=== PATIENT | female | born 1950 ===

== ENCOUNTER 2017-02-09 08:24 | Observation (INO) | payer MEDICARE, MEDICAID ==
[2017-02-09 08:30] VITALS: BMI 25.8
--- NOTE | 2017-02-09 08:44 | ED PDOC ---
Arrival/HPI - General Chief Complaint: Chest Pain Time Seen by Provider: 02/09/17 08:30 Historian: Patient - History of Present Illness Narrative History of Present Illness (Text): 02/09/17 08:44 A 66 year old female, whose past medical history includes hypertension and arthritis, presents to the emergency department complaining of chest pain since this morning. Patient reports she has been experiencing this pain for sometime and worsened this morning. Patient describes it as a pressure sensation but denies any radiating pain. Patient notes nausea but denies any trauma, fever, vomiting, diarrhea, abdominal pain, shortness of breath or any other complaints. Patient reports she was seen by PMD 1 week ago for a cough. Patient was diagnosed with asthmatic bronchitis and started on a course of antibiotics. PMD: Dr. [facility] Coordinator: Dr. Menjivar Time/Duration: Other (This morning) Symptom Course: Unchanged Quality: Other Context: Other Past Medical History - Provider Review Nursing Documentation Reviewed: Yes - Tetanus Immunization Tetanus Immunization: Unknown - Cardiac Hx Cardiac Disorders: Yes (leaky valve) Hx Angina: Yes Hx Hypertension: Yes - Pulmonary Hx Asthma: Yes Hx Bronchitis: Yes Hx Chronic Obstructive Pulmonary Disease (COPD): Yes - Neurological Hx Neurological Disorder: No - HEENT Hx HEENT Disorder: No - Renal Hx Renal Disorder: No - Endocrine/Metabolic Hx Endocrine Disorders: No - Hematological/Oncological Hx Blood Disorders: No - Integumentary Hx Dermatological Disorder: No - Musculoskeletal/Rheumatological Hx Falls: No - Gastrointestinal Hx Gastrointestinal Disorders: (hemorrhoids removed) - Genitourinary/Gynecological Hx Genitourinary Disorders: No - Psychiatric Hx Depression: Yes Hx Substance Use: No - Surgical History Hx Cardiac Catheterization: Yes Hx Musculoskeletal Surgery: Yes (right knee fx 2 sx's) Hx Orthopedic Surgery: Yes Other/Comment: lumps behind neck/capri great toes - Anesthesia Hx Anesthesia: Yes Hx Anesthesia Reactions: No - Suicidal Assessment Feels Threatened In Home Enviroment: No Family/Social History - Physician Review Nursing Documentation Reviewed: Yes Family/Social History: No Known Family HX Smoking Status: Never Smoked Hx Alcohol Use: No Hx Substance Use: No Hx Substance Use Treatment: No Allergies/Home Meds Allergies/Adverse Reactions: Allergies acetaminophen [From Percocet] Allergy (Verified 02/09/17 08:31) ITCHING morphine Allergy (Verified 02/09/17 08:31) ITCHING oxycodone HCl [From Percocet] Allergy (Verified 02/09/17 08:31) ITCHING tramadol HCl [From Ultram] Allergy (Verified 02/09/17 08:31) ITCHING Home Medications: Home Meds Medication Instructions Recorded Confirmed Budesonide/Formoterol Fumarate 1 aer IH DAILY 02/09/17 02/09/17 [Symbicort] Meloxicam [Mobic] 7.5 mg PO DAILY 02/09/17 02/09/17 Promethazine [Phenergan Syrup] 6.25 mg PO DAILY 02/09/17 02/09/17 Umeclidinium [place] [Incruse 62.5 mcg IH DAILY 02/09/17 02/09/17 Ellipta] Review of Systems - Physician Review All systems were reviewed & negative as marked: Yes - Review of Systems Constitutional: absent: Fevers Respiratory: absent: SOB Cardiovascular: Chest Pain Gastrointestinal: Nausea. absent: Abdominal Pain, Diarrhea, Vomiting Physical Exam Vital Signs Reviewed: Yes Vital Signs Temp Pulse Resp BP Pulse Ox 02/09/17 12:52 68 17 142/85 97 02/09/17 10:24 63 20 142/87 96 02/09/17 08:50 162/98 H 02/09/17 08:45 149/97 H 02/09/17 08:24 97.4 F L 84 18 156/72 H Temperature: Afebrile Blood Pressure: Hypertensive Pulse: Regular Respiratory Rate: Normal Appearance: Positive for: Well-Appearing, Non-Toxic, Comfortable Pain Distress: None Mental Status: Positive for: Alert and Oriented X 3 - Systems Exam Head: Present: Atraumatic, Normocephalic Pupils: Present: PERRL Extroacular Muscles: Present: EOMI Conjunctiva: Present: Normal Mouth: Present: Moist Mucous Membranes Neck: Present: Normal Range of Motion Respiratory/Chest: Present: Clear to Auscultation, Good Air Exchange. No: Respiratory Distress, Accessory Muscle Use, Tender to Palpation Cardiovascular: Present: Regular Rate and Rhythm, Normal S1, S2. No: Murmurs Abdomen: Present: Normal Bowel Sounds. No: Tenderness, Distention, Peritoneal Signs Back: Present: Normal Inspection Upper Extremity: Present: Normal Inspection. No: Cyanosis, Edema Lower Extremity: Present: Normal Inspection. No: Edema Neurological: Present: GCS=15, CN II-XII Intact, Speech Normal Skin: Present: Warm, Dry, Normal Color. No: Rashes Psychiatric: Present: Alert, Oriented x 3, Normal Insight, Normal Concentration Medical Decision Making ED Course and Treatment: 02/09/17 08:44 Impression: A 66 year old female with chest pain. Patient notes nausea. Differential Diagnosis included but are not limited to: Chest pain rule out ACS Plan: -- CT angio -- Chest xray -- EKG -- Labs -- Aspirin and Nitroglycerin -- Reassess and disposition Progress Notes: EKG shows NSR at 84 BPM with LBBB, no changes from prior on 11/21/14. Interpreted by me. Report Date : 02/09/2017 09:28:05 Procedure: Chest xray Dictator : Alfredito Pandya MD IMPRESSION: No active disease. Report Date : 02/09/2017 10:17:28 PROCEDURE: CT Angiography Chest, Abdomen and Pelvis with and without intravenous contrast Dictator : Alfredito Pandya MD IMPRESSION: Negative study 02/09/17 12:[address] Mitchell, who accepts patient admission for chest pain. I have discussed the results and plan with the patient, who expresses understanding. Patient in agreement with plan. - Lab Interpretations Lab Results: 02/09/17 08:30 02/09/17 08:30 Lab Results 02/09/17 08:30: WBC 5.8, RBC 4.58, Hgb 14.5, Hct 41.1, MCV 89.7, MCH 31.7, MCHC 35.3, RDW 12.5, Plt Count 287, MPV 10.2, Gran % 50.5, Lymph % (Auto) 42.1 H, Dubois % (Auto) 5.8, Eos % (Auto) 1.4 L, Baso % (Auto) 0.2, Gran # 2.94, Lymph # 2.5, Dubois # 0.3, Eos # 0.1, Baso # 0.01, PT 11.1, INR 1.03, APTT 29.4, D-Dimer, Quantitative 0.42, Sodium 139, Potassium 3.8, Chloride 101, Carbon Dioxide 26, Anion Gap 16, BUN 15, Creatinine 0.7, Est GFR ( Amer) > 60, Est GFR (Non- Af Amer) > 60, Random Glucose 97, Calcium 9.4, Magnesium 2.1, Total Bilirubin 1.0, AST 33, ALT 20, Alkaline Phosphatase 101, Lactate Dehydrogenase 822 H, Total Creatine Kinase 309 H, CK-MB (CK-2) 1.36, CK-MB (CK-2) % Cancelled, Troponin I 0.02 D, Total Protein 8.1, Albumin 4.5, Globulin 3.6, Albumin/ Globulin Ratio 1.3 I have reviewed the lab results: Yes - RAD Interpretation Radiology Orders: 02/09/17 08:44 CHEST PORTABLE [RAD] Stat 02/09/17 09:20 ANGIOGRAPHY DISECTION PROTOCOL [CT] Stat - Medication Orders Current Medication Orders: Albuterol/Ipratropium (Duoneb 3 Mg/0.5 Mg (3 Ml) Ud) 3 ml IH Q2H PRN PRN Reason: Shortness of Breath Albuterol/Ipratropium (Duoneb 3 Mg/0.5 Mg (3 Ml) Ud) 3 ml IH [id number] [facility] Last Admin: 02/09/17 15:23 Dose: 3 ML Aspirin (Aspirin Chewable) 81 mg PO DAILY [facility] [place] Last Admin: 02/09/17 11:31 Dose: Ibuprofen (Motrin Tab) 400 mg PO Q6 PRN PRN Reason: Pain, moderate (4-7) Levalbuterol HCl (Xopenex) 1.25 mg IH [id number] PRN PRN Reason: Shortness of Breath Discontinued Medications Aspirin (Aspirin) 325 mg PO STAT STA Stop: 02/09/17 08:45 Last Admin: 02/09/17 08:54 Dose: 325 MG Iohexol (Omnipaque 350 150 Ml) Confirm Administered Dose 150 ml .ROUTE .STK-MED ONE Stop: 02/09/17 09:27 Ketorolac Tromethamine (Toradol) 15 mg IVP STAT STA Stop: 02/09/17 10:39 Last Admin: 02/09/17 10:58 Dose: 15 MG IVP Administration Document 02/09/17 10:58 JOL (Rec: 02/09/17 10:58 JOL [id number]) Charges for Administration # of IVP Administrations 1 Nitroglycerin (Nitrostat Sl Tab) 0.4 mg SL STAT STA Stop: 02/09/17 08:45 Last Admin: 02/09/17 08:57 Dose: 0.4 MG Symbicort 160-4.5 Mcg Inhaler (Home Med) 1 aer IH DAILY COLT Last Admin: 02/09/17 12:10 Dose: - Scribe Statement The provider has reviewed the documentation as recorded by the [employer] Provider Scribe Attestation: All medical record entries made by the Scribe were at my direction and personally dictated by me. I have reviewed the chart and agree that the record accurately reflects my personal performance of the history, physical exam, medical decision making, and the department course for this patient. I have also personally directed, reviewed, and agree with the discharge instructions and disposition. Disposition/Present on Arrival - Present on Arrival Any Indicators Present on Arrival: No History of DVT/PE: No History of Uncontrolled Diabetes: No Urinary Catheter: No History of Decub. Ulcer: No History Surgical Site Infection Following: None - Disposition Have Diagnosis and Disposition been Completed?: Yes Diagnosis: Chest pain Disposition: HOSPITALIZED Disposition Time: 12:45 Patient Plan: Observation Patient Problems: Current Active Problems Problem Status Diagnosed Chest pain Acute Condition: FAIR
[2017-02-09 08:47] LABS: ADD MANUAL DIFF? NO
[2017-02-09 08:51] LABS: BASO # 0.01 K/mm3 (0.0-2.0); BASO % 0.2 % (0.0-3.0); EOS # 0.1 (0.0-0.7); EOS % 1.4 % (1.5-5.0); GRAN # 2.94 (1.4-6.5); GRAN % 50.5 % (50.0-68.0); HEMATOCRIT 41.1 % (36.0-48.0); LYMPH # 2.5 (1.2-3.4); LYMPH % 42.1 % (22.0-35.0); MEAN CELL VOLUME 89.7 fL (80.0-105.0); MEAN CORPUSCULAR HEMOGLOBIN 31.7 pg (25.0-35.0); MEAN CORPUSCULAR HGB CONC 35.3 g/dl (31.0-37.0); MEAN PLATELET VOLUME 10.2 fl (7.0-11.0); MONO # 0.3 (0.1-0.6); MONO % 5.8 % (1.0-6.0); PLATELET COUNT 287 10^3/uL (120.0-450.0); RED CELL DISTRIBUTION WIDTH 12.5 % (11.5-14.5); WHITE BLOOD COUNT 5.8 10^3/ul (4.5-11.0)
[2017-02-09 09:08] LABS: ALB/GLOB RATIO 1.3 (1.1-1.8); ALKALINE PHOSPHATASE 101 U/L (38-133); ALT/SGPT 20 U/L (7-56); AST/SGOT 33 U/L (15-39); BLOOD UREA NITROGEN 15 mg/dL (7-21); CALCIUM 9.4 mg/dL (8.4-10.5); CARBON DIOXIDE 26 mmol/L (21-33); CHLORIDE 101 mmol/L (95-110); GFR AFRICAN-AMERICAN > 60; GLUCOSE,RANDOM 97 mg/dL (70-110); MAGNESIUM 2.1 mg/dL (1.7-2.2); POTASSIUM 3.8 mmol/L (3.6-5.0); SODIUM 139 mmol/L (132-148); TOTAL PROTEIN 8.1 g/dL (5.8-8.3)
--- NOTE | 2017-02-09 09:29 | RAD ---
HISTORY: chest pain COMPARISON: 01/09/2017 FINDINGS: LUNGS: No active pulmonary disease. PLEURA: No significant pleural effusion identified, no pneumothorax apparent. CARDIOVASCULAR: Normal. OSSEOUS STRUCTURES: No significant abnormalities. VISUALIZED UPPER ABDOMEN: Normal. OTHER FINDINGS: None. IMPRESSION: No active disease.
[2017-02-09 09:33] LABS: TROPONIN I 0.02 ng/mL
--- NOTE | 2017-02-09 10:19 | CT ---
PROCEDURE: CT Angiography Chest, Abdomen and Pelvis with and without intravenous contrast HISTORY: chest pain r/o dissection COMPARISON: None. TECHNIQUE: Contiguous axial images of the chest, abdomen and pelvis were obtained in the phase of aortic enhancement. A noncontrast enhanced CT of the chest was also obtained to evaluate for possible intramural thrombus. Coronal and sagittal reformats were generated. IV dose administered: 150 cc of Omni 350 Radiation dose: Total exam DLP = 1498 mGy-cm. FINDINGS: CT ANGIOGRAPHY OF THE CHEST WITH & WITHOUT CONTRAST: AORTA (CHEST AND ABDOMEN): The thoracic and abdominal aorta are unremarkable, without aneurysm, dissection or rupture. No intramural thrombus identified in the thoracic aorta on the non-contrast ct of the chest. The celiac axis, superior mesenteric artery, inferior mesenteric artery and the renal arteries are widely patent. The pelvic arteries are unremarkable. LUNGS: Clear. No nodule, mass or consolidation. Calcified granuloma at the left lung base MEDIASTINUM: Unremarkable. Normal caliber aorta and pulmonary arterial trunk. No aortic dissection. Normal size heart. LYMPH NODES: Unremarkable. PLEURA: Unremarkable. No pneumothorax. No pleural fluid. BONES: Unremarkable. OTHER FINDINGS: None. CT ANGIOGRAPHY OF THE ABDOMEN AND PELVIS WITH CONTRAST: LIVER: Unremarkable. No gross lesion or ductal dilatation. GALLBLADDER AND BILE DUCTS: Unremarkable. PANCREAS: Unremarkable. No gross lesion or ductal dilatation. SPLEEN: Unremarkable. ADRENALS: Unremarkable. No mass. KIDNEYS AND URETERS: Unremarkable. No hydronephrosis. No solid mass. VASCULATURE: Unremarkable. No aortic aneurysm. STOMACH AND BOWEL: Unremarkable. No obstruction. No gross mural thickening. APPENDIX: Normal appendix. PERITONEUM: Unremarkable. No free fluid. No free air. LYMPH NODES: Unremarkable. No enlarged lymph nodes. BLADDER: Unremarkable. REPRODUCTIVE: Unremarkable. BONES: No acute fracture. OTHER FINDINGS: None. IMPRESSION: Negative study
[2017-02-09 10:23] LABS: INR 1.03 (0.93-1.08); PARTIAL THROMBOPLASTIN TIME 29.4 Seconds (23.7-30.8)
[2017-02-09 10:24] LABS: D DIMER 0.42 mg/L FEU (0-0.50)
[2017-02-09] MEDS ORDERED: Symbicort 160-4.5 Mcg Inhaler (HOME MED) IH SCH (11:15)
[2017-02-09] MEDS ORDERED: Albuterol-Ipratrop 3 mg / 0.5 (3 ml) UD IH PRN (11:16)
--- NOTE | 2017-02-09 11:44 | CARD ---
APPROVED REPORT EKG Measurement Heart [id number] <Conclusion> Normal sinus rhythm Left axis deviation Left bundle branch block Abnormal ECG
[2017-02-09] MEDS ORDERED: Levalbuterol 1.25 MG/3 ML Inhal Soln UD IH PRN (12:39)
--- NOTE | 2017-02-09 14:42 | HP ---
The patient is a 66-year-old, seen and examined, came to Emergency Room because of chest discomfort, shortness of breath. She did have chest discomfort that started since morning. The patient does sta te that she has been having intermittent chest pain that got worse today. Pain is pressure-like, lolly e heaviness in the chest. No radiation to the neck or the jaw or to the left arm. Denies any fever or chills. Does complain of nausea. No vomiting, no diarrhea, no abdominal pain. The patient state s she has cold-like symptoms almost a week and a half ago. She saw her PMD and has been on medicatio n, and her cough seems to be doing better. PAST MEDICAL HISTORY: Significant for: 1. Angina. 2. Hypertension. 3. Generalized osteoarthritis. 4. History of COPD. ALLERGIES: THE PATIENT IS ALLERGIC TO ACETAMINOPHEN, MORPHINE, OXYCODONE AND TRAMADOL. MEDICATIONS AT HOME: She is on Symbicort, promethazine, Mobic and Ellipta. SOCIAL HISTORY: Denies smoking, drinking or alcohol use. REVIEW OF SYSTEMS: Complained of chest discomfort and mild nausea. PHYSICAL EXAMINATION: GENERAL: She is awake and alert, communicative. VITAL SIGNS: She is afebrile, pulse 63, respirations 20, blood pressure 145/87. LUNGS: Bilateral fair airflow, no rhonchi or crackle. HEART: S1, S2 audible. No murmur. ABDOMEN: Soft, nontender, no rebound, no guarding. NEUROLOGIC: The patient is awake and alert, communicative. LABORATORY EXAMINATION: WBCs 5.8, hemoglobin 14.5, hematocrit 41, platelet of 283. PT 11.1, INR 1.0 3. Chemistry: Sodium 139, potassium 3.8, chloride 101, CO2 26, BUN 15, creatinine 0.7, blood sugar of 97. LDH is 822. CPK is 309. ASSESSMENT: 1. Chest pain, rule out underlying coronary artery disease. 2. Recent asthmatic bronchitis. 3. Hypertension. PLAN: We will put her on monitor and storage bin tender. Monitor her cardiac enzyme. Start her on aspirin, beta b locker and check her statin. Dr. Rankin to evaluate the patient. Davin Mitchell MD cc: [phone] TT: 02/09/2017 14:41:27 en
[2017-02-09] MEDS: Albuterol-Ipratrop 3 mg / 0.5 (3 ml) UD IH SCH ×2 (15:23→20:06)
[2017-02-09 15:56] LABS: CHOLESTEROL 162 mg/dL (130-200)
[2017-02-09 16:08] LABS: TROPONIN I < 0.01 ng/mL
[2017-02-09] MEDS ORDERED: guaiFENesin DM 100 mg-10 mg/5 ml UD PO PRN (19:11)
[2017-02-10] MEDS: Albuterol-Ipratrop 3 mg / 0.5 (3 ml) UD IH SCH ×2 (01:31→07:16)
--- NOTE | 2017-02-10 02:07 | CON ---
DATE: 02/09/2017 HISTORY OF PRESENT ILLNESS: The patient is a 66-year-old woman who presents with chest pain. PAST MEDICAL HISTORY: Notable for hypertension. She has suffered on and off chest pain over the past several years. Her workup has included a cardia c catheterization which was done 2 years ago, which revealed normal coronary arteries. Negative diabetes mellitus noted. Her symptoms are currently relieved. SOCIAL HISTORY: She does not smoke. REVIEW OF SYSTEMS: A 14-point review of systems was reviewed. No cardiac symptomatology is noted ot her than the vague description of chest pain. PHYSICAL EXAMINATION: VITAL SIGNS: Blood pressure and heart rate are stable. NECK: Negative JVD. LUNGS: Without rales. HEART: Reveals S1, S2. EXTREMITIES: Without edema. EKG shows normal sinus rhythm with a left anterior hemiblock with no acute changes. LABORATORIES: Troponins are negative x 1. IMPRESSION: 1. Chest pain. 2. No evidence for acute coronary syndrome so far. 3. History of normal coronary arteries. 4. Hypertension. 5. No evidence for PE on nuclear angiogram. Given these findings, we will obtain serial troponins. If negative, we will arrange for an outpatien t stress test. Larry Rankin MD cc: [id number] TT: 02/10/2017 02:06:49 Confirmation # [id number] Dictation # [id number] mn
[2017-02-10 05:26] VITALS: TEMP 97.5; O2SAT 96
[2017-02-10] MEDS ORDERED: Pantoprazole 40 mg EC Tab PO SCH (06:30)
[2017-02-10 07:22] LABS: ALB/GLOB RATIO 1.2 (1.1-1.8); ALKALINE PHOSPHATASE 81 U/L (38-133); ALT/SGPT 20 U/L (7-56); AST/SGOT 29 U/L (15-39); BILIRUBIN,TOTAL 1.2 mg/dL (0.2-1.3); BLOOD UREA NITROGEN 12 mg/dL (7-21); CALCIUM 9.3 mg/dL (8.4-10.5); CARBON DIOXIDE 30 mmol/L (21-33); CHLORIDE 100 mmol/L (98-107); GFR AFRICAN-AMERICAN > 60; GLUCOSE,RANDOM 92 mg/dL (70-110); MAGNESIUM 2.2 mg/dL (1.7-2.2); PHOSPHOROUS 4.7 mg/dL (2.5-4.5); POTASSIUM 4.2 mmol/L (3.6-5.0); SODIUM 138 mmol/L (132-148); TOTAL PROTEIN 7.5 g/dL (5.8-8.3)
[2017-02-10 07:29] LABS: FREE T4 1.14 ng/dL (0.78-2.19)
[2017-02-10 07:43] LABS: THYROID STIMULATING HORMONE 0.81 mIU/mL (0.46-4.68)
--- NOTE | 2017-02-10 11:40 | PN ---
DATE: 02/10/2017 SUBJECTIVE: The patient is chest pain free. She is ambulating in the room. PHYSICAL EXAMINATION: VITAL SIGNS: Blood pressure is 149/82. The heart rate is in the 80s. The patient is afebrile. NECK: Negative JVD. LUNGS: Without rales. HEART: Reveals S1, S2. EXTREMITIES: Without edema. LABORATORY DATA: The troponins are negative x 2. EKG is unchanged. IMPRESSION: 1. Chest pain. 2. No evidence for acute coronary syndrome. 3. History of hypertension. 4. No evidence for pulmonary embolism. Given these findings, from a cardiac perspective, the patient can be discharged. The patient has an appointment for an outpatient stress test next week. Larry Rankin MD cc: [id number] TT: 02/10/2017 11:40:10 Confirmation # [id number] Dictation # [id number] elva
[2017-02-10 12:16] VITALS: BP 150/88; PULSE 68; RESP 18
--- NOTE | 2017-02-11 08:04 | DS ---
The patient is a 66-year-old, seen and examined sitting in chair. She states chest pain is almost go ne. No nausea, vomiting or diarrhea. PHYSICAL EXAMINATION: VITAL SIGNS: She is afebrile, pulse 60, respirations 18, blood pressure 150/____. LUNGS: Bilateral fair airflow, no rhonchi or crackle. HEART: S1, S2 audible. ABDOMEN: Soft, nontender, no rebound, no guarding. NEUROLOGIC: The patient is awake and alert, communicative. LABORATORY EXAM: Sodium 138, potassium 4.2, chloride 100, CO2 of 30, BUN 12, creatinine 0.8, blood s ugar of 92, phosphorus 4.7, calcium 9.3. She had CT angio done that was unremarkable. ASSESSMENT AND PLAN: 1. Noncardiac chest pain. 2. Asthmatic bronchitis. 3. History of chronic obstructive pulmonary disease. PLAN: There is no evidence of acute coronary ischemia. The patient was evaluated by Dr. Rankin. She is scheduled for stress test as outpatient. She is going to be discharged today in stable condition. She can resume her medication including budesonide, Symbicort, promethazine, Mobic and Incruse. e will follow up with her PMD as outpatient. Davin Mitchell MD cc: [phone] TT: 02/11/2017 08:04:03 elva
== END 2017-02-10 13:06 | disposition home or self-care (01) ==
LOC: ED 08:24 → ERH 11:33 → 2RNO 13:26
PROVIDERS: ADMIT Internal Medicine; ATTEND Internal Medicine
DX: R07.89 Other chest pain (principal); I10 Essential (primary) hypertension; J44.9 Chronic obstructive pulmonary disease, unspecified; J45.909 Unspecified asthma, uncomplicated; M15.9 Polyosteoarthritis, unspecified
CPT/HCPCS: 36415; 71010; 71275; 74175; 80053; 80061; 82550; 82553; 82948; 83036; 83615; 83735; 84100; 84439; 84443; 84484; 85025; 85378; 85610; 85730; 93005; 94640; 94760; 96374; 99285; G0378; J1885; J2405; Q9967

== ENCOUNTER 2017-03-23 10:56 | Inpatient (IN) | payer MEDICARE, MEDICAID ==
[2017-03-23 10:56] VITALS: BMI 25.8
--- NOTE | 2017-03-23 11:07 | CP.PCM.PN ---
<Bernice Foreman - Last Filed: 03/23/17 11:24> Subjective - Date & Time of Evaluation Date of Evaluation: 03/23/17 Time of Evaluation: 11:05 - Subjective Subjective: Rapid Response note 66 year old female with past medical history of HTN, arthritis, COPD, gastritis and depression is complaining of chest pain after 1st part of pharmacological stress test (she was waiting for the second half of stress test). Patient was in waiting area after the 1st part of stress test when she developed substernal chest pain, non-radiating 05/25. Rapid response was then called. Patient denied having any SOB. She then developed nausea and a headache. Vitals are as follows: BORGES 96, Spo2 100% NC, BP 100/85 EKG showed LBBB Pmhx: stated above Objective - Vital Signs/Intake and Output Vital Signs (last 24 hours): Temp Pulse Resp BP Pulse Ox 98.2 F 95 H 18 171/102 H 97 03/23/17 11:02 03/23/17 11:02 03/23/17 11:02 03/23/17 11:02 03/23/17 11:02 - Constitutional Appears: In Acute Distress - ENT Exam ENT Exam: Mucous Membranes Moist - Respiratory Exam Respiratory Exam: Clear to Ausculation Bilateral. absent: Rales, Rhonchi, Wheezes - Cardiovascular Exam Cardiovascular Exam: Tachycardia - GI/Abdominal Exam GI & Abdominal Exam: Soft. absent: Tenderness - Extremities Exam Extremities Exam: absent: Pedal Edema - Neurological Exam Neurological Exam: Alert, Awake, Oriented x3 - Skin Skin Exam: Dry, Intact, Normal Color, Warm Assessment and Plan - Assessment and Plan (Free Text) Assessment: 1. Chest pain likely 2/2 ACS - Patient given aspirin and nitro SL - Transferred patient to ED with help of cardiac cath nurse, ICU nurse and house doctor. ED doctor notified. - EKG done during rapid response showed LBBB. previous EKGs were examined and also showed LBBB <Saji Davila - Last Filed: 03/27/17 22:32> Objective - Vital Signs/Intake and Output Vital Signs (last 24 hours): Temp Pulse Resp BP Pulse Ox 98.5 F 80 18 128/74 99 03/24/17 20:45 03/25/17 10:00 03/24/17 20:45 03/24/17 20:45 03/24/17 05:38 - Labs Labs: 03/24/17 06:00 PT 10.9 Seconds (9.9-11.8) 03/23/17 11:21 INR 1.01 (0.93-1.08) 03/23/17 11:21 APTT 28.8 Seconds (23.7-30.8) 03/23/17 11:21
[2017-03-23 11:29] LABS: ADD MANUAL DIFF? NO
[2017-03-23 11:32] LABS: BASO # 0.01 [, K/mm3] (0.0-2.0); BASO % 0.1 % (0.0-3.0); EOS % 0.4 % (1.5-5.0); GRAN # 3.88 (1.4-6.5); LYMPH # 2.5 (1.2-3.4); LYMPH % 36.9 % (22.0-35.0); MEAN CELL VOLUME 91.3 fL (80.0-105.0); MEAN CORPUSCULAR HEMOGLOBIN 30.9 pg (25.0-35.0); MEAN CORPUSCULAR HGB CONC 33.8 g/dl (31.0-37.0); MEAN PLATELET VOLUME 10.7 fl (7.0-11.0); MONO # 0.4 (0.1-0.6); MONO % 5.6 % (1.0-6.0); PLATELET COUNT 251 [, 10^3/uL] (120.0-450.0); RED CELL DISTRIBUTION WIDTH 12.5 % (11.5-14.5); WHITE BLOOD COUNT 6.8 [, 10^3/ul] (4.5-11.0)
--- NOTE | 2017-03-23 11:32 | ED PDOC ---
Arrival/HPI - General Chief Complaint: Chest Pain Time Seen by Provider: 03/23/17 10:58 Historian: Patient - History of Present Illness Narrative History of Present Illness (Text): 03/23/17 11:16 A 66 year old female, whose past medical history includes hypertension, presents to the emergency department with complaints of chest discomfort. Patient reports she was in the hospital undergoing a chemical stress test when she developed chest pain. There are no relieving or exacerbating factors. Patient denies any shortness of breath or other complaints at this time. Patient has a left bundle branch block on her EKG which is not new. PMD: Dr. Romano Time/Duration: Prior to Arrival Symptom Onset: Sudden Symptom Course: Unchanged Quality: Other (discomfort) Activities at Onset: Rest Context: Other Past Medical History - Provider Review Nursing Documentation Reviewed: Yes - Tetanus Immunization Tetanus Immunization: Unknown - Cardiac Hx Cardiac Disorders: Yes Hx Angina: Yes Hx Hypertension: Yes - Pulmonary Hx Respiratory Disorders: Yes Hx Asthma: Yes Hx Bronchitis: Yes Hx Chronic Obstructive Pulmonary Disease (COPD): Yes - Neurological Hx Neurological Disorder: No - HEENT Hx HEENT Disorder: No - Renal Hx Renal Disorder: No - Endocrine/Metabolic Hx Endocrine Disorders: No - Hematological/Oncological Hx Blood Disorders: No - Integumentary Hx Dermatological Disorder: No - Musculoskeletal/Rheumatological Hx Musculoskeletal Disorders: No Hx Falls: No - Gastrointestinal Hx Gastrointestinal Disorders: Yes (hemorrhoids removed) - Genitourinary/Gynecological Hx Genitourinary Disorders: No - Psychiatric Hx Psychophysiologic Disorder: Yes Hx Depression: Yes Hx Substance Use: No - Surgical History Hx Cardiac Catheterization: Yes Hx Musculoskeletal Surgery: Yes (right knee fx 2 sx's) Hx Orthopedic Surgery: Yes Other/Comment: lumps behind neck/capri great toes - Anesthesia Hx Anesthesia: Yes Hx Anesthesia Reactions: No - Suicidal Assessment Feels Threatened In Home Enviroment: No Family/Social History - Physician Review Nursing Documentation Reviewed: Yes Family/Social History: Unknown Family HX Smoking Status: Never Smoked Hx Alcohol Use: No Hx Substance Use: No Hx Substance Use Treatment: No Allergies/Home Meds Allergies/Adverse Reactions: Allergies acetaminophen [From Percocet] Allergy (Verified 03/23/17 10:59) ITCHING morphine Allergy (Verified 03/23/17 10:59) ITCHING oxycodone HCl [From Percocet] Allergy (Verified 03/23/17 10:59) ITCHING tramadol HCl [From Ultra] Allergy (Verified 03/23/17 10:59) ITCHING Home Medications: Home Meds Medication Instructions Recorded Confirmed Meloxicam [Mobic] 7.5 mg PO DAILY 02/09/17 03/23/17 Bisacodyl [Dulcolax] 1 tab PO PRN PRN 03/23/17 03/23/17 Escitalopram [Lexapro] 10 mg PO DAILY 03/23/17 03/23/17 Famotidine [Pepcid] 40 mg PO HS 03/23/17 03/23/17 Fluticasone Furoate [Arnuity 1 inh INH DAILY 03/23/17 03/23/17 Ellipta] Fluticasone Nasal [Flonase] 1 spray IN DAILY 03/23/17 03/23/17 Levocetirizine Dihydrochloride 5 mg PO HS 03/23/17 03/23/17 [Xyzal] Ondansetron HCl [Zofran] 8 mg PO Q6 PRN 03/23/17 03/23/17 Sucralfate [Carafate] 1 tab PO ACHS 03/23/17 03/23/17 Umeclidinium Brm/Vilanterol Tr 1 inh INH DAILY 03/23/17 03/23/17 [Anoro Ellipta 62.5-25 Mcg INH] Physical Exam - Physical Exam Narrative Physical Exam (Text): - Review of Systems Constitutional: Normal. absent: Fatigue, Weight Change, Fevers Eyes: Normal ENT: Normal Respiratory: Normal absent: SOB, Cough, Sputum Cardiovascular: Chest Pain. absent: Palpitations, Syncope Gastrointestinal: Normal absent: Abdominal pain, Diarrhea, Nausea, Vomiting Genitourinary: Normal. absent: Dysuria, Frequency, Hematuria Musculoskeletal: Normal. absent: Arthralgias, Back Pain, Neck Pain Skin: Normal Neurological: Normal absent: Focal Weakness Endocrine: Normal Hemo/Lymphatic: Normal Psychiatric: Normal - Physical exam Patient appears age appropriate, speaking full sentences without difficulty - Systems Exam Head: Present: Atraumatic, Normocephalic Pupils: Present: PERRL Extraocular Muscles: Present: EOMI Conjunctiva: Present: Normal Mouth: Present: Moist Mucous Membranes Neck: Present: Normal Range of Motion. No: MIDLINE TENDERNESS, Paraspinal Tenderness Respiratory/Chest: Present: Clear to Auscultation, Good Air Exchange. No: Respiratory Distress, Accessory Muscle Use, Tachypneic Cardiovascular: Present: Regular Rate and Rhythm, Normal S1, S2, Peripheral Pulses Present. No: Murmurs Abdomen: Present: Normal Bowel Sounds, No: Tenderness, Peritoneal Signs, Rebound, Guarding, Distention Back: Present: Normal Inspection. No: Midline Tenderness, Paraspinal Tenderness Upper Extremity: Present: Normal Inspection. No: Cyanosis, Edema Lower Extremity: Present: Normal Inspection. No: Edema Neurological: Present: GCS=15, Speech Normal, cranial nerves II through XII fully intact with no cerebellar abnormality, neuro-sensory fully intact. No focal neurological deficits. Skin: Present: Warm, Dry, Normal Color. No: Rashes Lymphatic: Present: OX3, NI, NC Psychiatric: Present: Alert, Oriented x 3, Normal Insight, Normal Concentration 03/23/17 11:54 Vital Signs Reviewed: Yes Vital Signs Temp Pulse Resp BP Pulse Ox 03/23/17 12:18 68 18 163/93 H 99 03/23/17 11:02 98.2 F 95 H 18 171/102 H 97 Temperature: Afebrile Blood Pressure: Hypertensive Pulse: Regular Respiratory Rate: Normal Appearance: Positive for: Well-Appearing, Non-Toxic, Comfortable Pain Distress: None Mental Status: Positive for: Alert and Oriented X 3 Medical Decision Making ED Course and Treatment: 03/23/17 11:16 Impression: A 66 year old female with chest discomfort during stress test. No acute findings on physical exam. Differential Diagnosis include but are not limited to: ACS Plan: -- EKG -- Chest X-ray -- Labs -- Aspirin and Nitroglycerin -- Reassess and disposition Progress Notes: EKG: Interpreted by me. Rate : 80 BPM Rhythm : NSR Interpretation : Left bundle branch Comparison : No change from previous EKG for comparison. 03/23/17 12:25 Chest X-ray: Creator : Alfredito Pandya MD IMPRESSION: No active disease. 03/23/17 13:[address] Mitchell in the ER accepted to her service pt in no distress, aware of and agrees with plan - Lab Interpretations Lab Results: 03/23/17 11:21 03/23/17 11:21 Lab Results 03/23/17 11:21: Sodium 141, Potassium 3.7, Chloride 98, Carbon Dioxide 30, Anion Gap 17, BUN 12, Creatinine 0.7, Est GFR ( Amer) > 60, Est GFR (Non- Af Amer) > 60, Random Glucose 100, Calcium 10.5, Total Bilirubin 1.1, AST 32, ALT 28, Alkaline Phosphatase 89, Lactate Dehydrogenase 790 H, Total Creatine Kinase 365 H, CK-MB (CK-2) 1.1, CK-MB (CK-2) % Cancelled, Troponin I < 0.01, NT- Pro-B Natriuret Pep 946 H, Total Protein 8.9 H, Albumin 5.0 H, Globulin 3.9, Albumin/Globulin Ratio 1.3 03/23/17 11:21: PT 10.9, INR 1.01, APTT 28.8 03/23/17 11:21: WBC 6.8, RBC 4.60, Hgb 14.2, Hct 42.0, MCV 91.3, MCH 30.9, MCHC 33.8, RDW 12.5, Plt Count 251, MPV 10.7, Gran % 57.0, Lymph % (Auto) 36.9 H, Newton % (Auto) 5.6, Eos % (Auto) 0.4 L, Baso % (Auto) 0.1, Gran # 3.88, Lymph # 2.5, Newton # 0.4, Eos # 0.0, Baso # 0.01 I have reviewed the lab results: Yes - RAD Interpretation Radiology Orders: 03/23/17 11:21 CHEST PORTABLE [RAD] Stat - Medication Orders Current Medication Orders: Discontinued Medications Aspirin (Aspirin Chewable) 324 mg PO STAT STA Stop: 03/23/17 11:22 Last Admin: 03/23/17 11:27 Dose: 324 mg Nitroglycerin (Nitrostat Sl Tab) 0.3 mg SL STAT STA Stop: 03/23/17 11:22 Last Admin: 03/23/17 11:32 Dose: 0.3 mg - Scribe Statement The provider has reviewed the documentation as recorded by the [employer]edy[employer] Carver Provider Spe[employer] Attestation: All medical record entries made by the [employer] were at my direction and personally dictated by me. I have reviewed the chart and agree that the record accurately reflects my personal performance of the history, physical exam, medical decision making, and the department course for this patient. I have also personally directed, reviewed, and agree with the discharge instructions and disposition. Disposition/Present on Arrival - Present on Arrival Any Indicators Present on Arrival: No History of DVT/PE: No History of Uncontrolled Diabetes: No Urinary Catheter: No History of Decub. Ulcer: No History Surgical Site Infection Following: None - Disposition Have Diagnosis and Disposition been Completed?: Yes Diagnosis: Chest pain Disposition: HOSPITALIZED Disposition Time: 11:20 Patient Plan: Admission Condition: FAIR Discharge Instructions (ExitCare): Chest Pain (ED) Referrals: Rod Romano MD [Primary Care Provider] - Follow up with primary
[2017-03-23 11:42] LABS: INR 1.01 (0.93-1.08); PARTIAL THROMBOPLASTIN TIME 28.8 Seconds (23.7-30.8)
[2017-03-23 11:46] LABS: ALB/GLOB RATIO 1.3 (1.1-1.8); ALKALINE PHOSPHATASE 89 U/L (38-133); ALT/SGPT 28 U/L (7-56); AST/SGOT 32 U/L (15-39); BILIRUBIN,TOTAL 1.1 mg/dL (0.2-1.3); BLOOD UREA NITROGEN 12 mg/dL (7-21); CALCIUM 10.5 mg/dL (8.4-10.5); CARBON DIOXIDE 30 mmol/L (21-33); CHLORIDE 98 mmol/L (98-107); GFR AFRICAN-AMERICAN > 60; GLUCOSE,RANDOM 100 mg/dL (70-110); POTASSIUM 3.7 mmol/L (3.6-5.0); SODIUM 141 mmol/L (132-148); TOTAL PROTEIN 8.9 g/dL (5.8-8.3)
[2017-03-23 11:58] LABS: TROPONIN I < 0.01 ng/mL
--- NOTE | 2017-03-23 12:23 | RAD ---
HISTORY: cough COMPARISON: 02/09/2017 FINDINGS: LUNGS: No active pulmonary disease. PLEURA: No significant pleural effusion identified, no pneumothorax apparent. CARDIOVASCULAR: Normal. OSSEOUS STRUCTURES: No significant abnormalities. VISUALIZED UPPER ABDOMEN: Normal. OTHER FINDINGS: None. IMPRESSION: No active disease.
--- NOTE | 2017-03-23 14:00 | CARD ---
APPROVED REPORT EKG Measurement Heart [id number] [id number] <Conclusion> Normal sinus rhythm Left axis deviation Left bundle branch block
[2017-03-23] MEDS ORDERED: Albuterol-Ipratrop 3 mg / 0.5 (3 ml) UD IH PRN (19:16)
[2017-03-23 21:11] LABS: CHOLESTEROL 170 mg/dL (130-200)
[2017-03-23 21:28] LABS: TROPONIN I < 0.01 ng/mL
--- NOTE | 2017-03-23 23:46 | HP ---
HISTORY OF PRESENT ILLNESS: The patient is a 66-year-old who came to the cardiology department to [place] a stress test done. She was given Lexiscan IV contrast. She developed chest pain. She became sh ort of breath, and also developed dizziness and headache, so rapid response was called and patient wa s brought to Emergency Room for further evaluation. When I examined the patient in the ER, she was complaining of feeling dizzy, having nausea and left-s ided headache. PAST MEDICAL HISTORY: Significant for: 1. Hypertension. 2. Hyperlipidemia. 3. History of COPD. 4. Generalized osteoarthritis. ALLERGIES: SHE IS ALLERGIC TO ACETAMINOPHEN, MORPHINE, OXYCODONE, AND TRAMADOL. MEDICATIONS AT HOME: 1. She is on Mobic 7.5 daily. 2. Ellipta, Anoro. 3. Flonase. 4. Zofran 8 mg q. 6. 5. Carafate 1 tablet 4 times a day. 6. Colace 1 tablet daily. 7. Xyzal 1 tablet daily 5 mg. 8. Pepcid. SOCIAL HISTORY: She denies smoking, drinking, or alcohol use. REVIEW OF SYSTEMS: Complained of feeling dizzy and headache. PHYSICAL EXAMINATION: GENERAL: She is awake and alert, communicative. VITAL SIGNS: She is afebrile, pulse 66, respirations 16, blood pressure 132/95. LUNGS: Bilateral fair airflow, no rhonchi or crackle. HEART: S1, S2 audible. ABDOMEN: Soft, nontender, no rebound, no guarding. NEUROLOGIC: She is awake and alert, communicative. LABORATORY DATA: WBC 6.8, hemoglobin 14, hematocrit 42, platelet 251. PT is 10.9, INR 1.01. Chemis try: Sodium 141, potassium 3.7, chloride 98, CO2 30, BUN 12, creatinine 0.7, blood sugar 100. LFTs are within normal limits. LDH is 790. CPK is 365. BNP 946. Total protein 8.9. ASSESSMENT: 1. Chest pain, rule out acute coronary syndrome. 2. Hypertension. 3. Hyperlipidemia. 4. History of chronic obstructive pulmonary disease. 5. EKG shows left bundle branch block, but that is old. PLAN: The patient will be started on aspirin, beta kamila. Given nebulizer as needed. Start her o n PPI. Monitor her troponin. Dr. Rankin for consult. Out of bed to chair. She will have the rest of Lexiscan done since she already had contrast in, so will reevaluate the patient in a.m. If she is s table, we will discharge in a.m. Davin Mitchell MD cc: [phone] TT: 03/23/2017 23:45:48 dn
[2017-03-24] MEDS ORDERED: Pneumococcal 23-Valent Vaccine IM ONE (01:00)
[2017-03-24 05:39] VITALS: O2SAT 99
[2017-03-24] MEDS: Pantoprazole 40 mg EC Tab PO SCH (05:45)
[2017-03-24 07:06] LABS: ALB/GLOB RATIO 1.3 (1.1-1.8); ALKALINE PHOSPHATASE 86 U/L (38-133); ALT/SGPT 33 U/L (7-56); AST/SGOT 31 U/L (15-39); BILIRUBIN,TOTAL 1.6 mg/dL (0.2-1.3); BLOOD UREA NITROGEN 11 mg/dL (7-21); CALCIUM 9.7 mg/dL (8.4-10.5); CARBON DIOXIDE 31 mmol/L (21-33); CHLORIDE 96 mmol/L (98-107); GFR AFRICAN-AMERICAN > 60; GLUCOSE,RANDOM 91 mg/dL (70-110); POTASSIUM 4.1 mmol/L (3.6-5.0); SODIUM 137 mmol/L (132-148); TOTAL PROTEIN 7.9 g/dL (5.8-8.3)
[2017-03-24] MEDS ORDERED: Famotidine 20mg/50ml 20 MG/50 ML BAG IVPB ONE (11:16)
[2017-03-24] MEDS ORDERED: DiphenhydrAMINE 50 mg/ml Inj ONE (11:17)
--- NOTE | 2017-03-24 12:33 | PN ---
DATE: 03/24/2017 The patient is 66 years old, seen and examined. The patient had stress test done yesterday. During the stress test she started to have chest pain and shortness of breath, so she was transferred to [facility] Room for further evaluation. She was placed in observation and today her stress test came remy k that shows abnormal myocardial perfusion study, partially reversible anteroseptal defect suspicious for ischemia, but there is normal gated wall motion. The patient is being prepped for cardiac tisha terization today. PHYSICAL EXAMINATION: GENERAL: She is awake and alert, communicative. VITAL SIGNS: She is afebrile, pulse 60, respirations 20, blood pressure 118/75. LUNGS: Bilateral fair airflow, no rhonchi or crackle. HEART: S1, S2 audible. ABDOMEN: Soft, nontender, no rebound, no guarding. NEUROLOGIC: The patient is awake and alert, communicative. Moves all extremities. LABORATORY: WBC 6.8, hemoglobin 14, hematocrit 42, platelets of 251. PT 10.9, INR 1.01. Chemistry: Sodium 137, potassium 4.1, chloride 96, CO2 of 31, BUN 11, creatinine 0.7, blood sugar of 91. ASSESSMENT: 1. Chest pain with abnormal stress test, being prepped for cardiac catheterization later on today. 2. Hypertension. 3. Hyperlipidemia. 4. Generalized osteoarthritis. 5. History of chronic obstructive pulmonary disease. PLAN: The patient will go for cardiac catheterization. Will continue her on beta kamila, aspirin. She is on PPI. Continue her on Lexapro. She was given Plavix 600 one dose stat. She will be monit [facility] and will be discharged home in a.m. if she remains stable. Davin Mitchell MD cc: [phone] TT: 03/24/2017 12:32:57 Confirmation # [id number] Dictation # [id number] marzena
[2017-03-24] MEDS ORDERED: Lidocaine 2% Inj (20ml) ONE (12:47)
[2017-03-24] MEDS ORDERED: Midazolam 2 MG/2 ML VIAL ONE (12:48)
[2017-03-24] MEDS ORDERED: Iodixanol 320 MG/ML 200 ML BOTTLE IV ONE (12:49)
[2017-03-24] MEDS ORDERED: Iohexol 350mgl/ml 50 ML ONE (12:49)
[2017-03-24] MEDS ORDERED: Sodium Chloride 0.9% 1,000 ML IV SCH (14:00)
--- NOTE | 2017-03-24 14:23 | CARDCATH ---
PROCEDURE DATE: 03/24/2017 HISTORY OF PRESENT ILLNESS: The patient is a 66-year-old woman who presents with recurrence of chest pain. Her stress test was abnormal. Because of her ongoing symptoms, cardiac catheterization was r ecommended. PROCEDURE: Left heart catheterization with coronary angiography and left ventriculogram. The right femoral artery was cannulated with a 6-Urdu sheath. There were no complications. The findings on catheterization revealed a left ventricle that contracted normally. Estimated ejecti on fraction is approximately 55%. Her coronary anatomy revealed a right dominant circulation. The RCA revealed intimal irregularities without significant stenosis. The left main artery was unremarkable. The LAD and diagonal vessels revealed intimal irregularities without significant stenosis. The circumflex artery and obtuse marginal branches were free of significant disease. The patient tolerated the procedure well. Manual compression was used to close the femoral artery site. In summary, the procedure revealed: 1. Unremarkable coronary arteries with atherosclerosis without critical lesions. 2. Left ventricular function is normal. Given these findings, the patient's chest pain is not of cardiac origin. We will refer the patient back to her [employer] for continued workup of her gastrointestinal symptomatology. Larry Rankin MD cc: [phone] TT: 03/24/2017 14:23:14 en
[2017-03-24] MEDS: Fluticasone Nasal 50 mcg/Spray NAS SCH (14:56)
[2017-03-24 20:51] VITALS: BP 128/74; RESP 18; TEMP 98.5
[2017-03-25] MEDS: Pantoprazole 40 mg EC Tab PO SCH (05:57)
--- NOTE | 2017-03-25 08:53 | PN ---
DATE: 03/25/2017 CARDIOLOGY FOLLOWUP The patient is asymptomatic, status post cardiac catheterization. PHYSICAL EXAMINATION: VITAL SIGNS: Blood pressure is 128/74. The heart rate is in the 70s. NECK: Negative JVD. LUNGS: Without rales. HEART: Revealed S1, S2. EXTREMITIES: Without edema. LABORATORY DATA: OK is ruled out with negative troponins. Her catheterization reveals good LV function. Given these findings, the patient is stable post-cardiac catheterization. Her chest pain has not of cardiac origin. I have discussed this with the patient as well as with her son in detail. From a ca rdiac perspective, the patient can be discharged. Larry Rankin MD cc: [phone] TT: 03/25/2017 08:36:38 Confirmation # [id number] Dictation # [id number] [email or web address]
[2017-03-25] MEDS: Fluticasone Nasal 50 mcg/Spray NAS SCH (09:42)
[2017-03-25 10:03] VITALS: PULSE 80
--- NOTE | 2017-03-25 12:42 | DS ---
The patient is 66 years old. She mainly came in with chest pain. She underwent a stress test that w as abnormal and underwent cardiac cath yesterday that is unremarkable. Her cardiac cath that was don e on 03/24 revealed unremarkable coronary arteries with atherosclerosis without critical lesion. Left ventricular function is within normal limits. ASSESSMENT AND PLAN: 1. Chest pain, noncardiac. 2. Hypertension. 3. Hyperlipidemia. 4. History of depression. 5. History of chronic obstructive pulmonary disease. 6. Generalized osteoarthritis. PLAN: The patient is clinically stable, cleared by Dr. Rankin and can be discharged today. She will r esume her aspirin, Carafate, and Lexapro 10 mg daily, Plavix. She will continue Protonix. We will r eevaluate the patient. The patient will be followed by Dr. Yoo as outpatient. Davin Mitchell MD cc: [phone] TT: 03/25/2017 12:41:40 jn
== END 2017-03-25 14:04 | disposition home or self-care (01) | DRG 287 ==
LOC: ED 10:56 → ERH 13:07 → 2RSO 19:06
PROVIDERS: ADMIT Internal Medicine; ATTEND Internal Medicine
PROC: 4A023N7 Measurement of Cardiac Sampling and Pressure, Left Heart, Percutaneous Approach (ICD-10-PCS; principal; 2017-03-24)
PROC: B2111ZZ Fluoroscopy of Multiple Coronary Arteries using Low Osmolar Contrast (ICD-10-PCS; 2017-03-24)
PROC: B2151ZZ Fluoroscopy of Left Heart using Low Osmolar Contrast (ICD-10-PCS; 2017-03-24)
DX: R07.89 Other chest pain (principal); J44.9 Chronic obstructive pulmonary disease, unspecified; I10 Essential (primary) hypertension; I44.7 Left bundle-branch block, unspecified; E78.5 Hyperlipidemia, unspecified; K29.70 Gastritis, unspecified, without bleeding; M15.9 Polyosteoarthritis, unspecified; F32.9 Major depressive disorder, single episode, unspecified; R94.39 Abnormal result of other cardiovascular function study

== ENCOUNTER 2017-05-14 14:57 | Emergency (ER) | payer MEDICARE, MEDICAID ==
[2017-05-14 14:58] VITALS: BMI 25.8
[2017-05-14 15:11] VITALS: TEMP 98.3
[2017-05-14] MEDS ORDERED: Sodium Chloride 0.9% 1,000 ML IV STA (15:25)
--- NOTE | 2017-05-14 15:35 | ED PDOC ---
Arrival/HPI - General Historian: Patient - History of Present Illness Time/Duration: 1 week Symptom Onset: Gradual Symptom Course: Worsening Context: Home - General Chief Complaint: Dizziness/Lightheaded Time Seen by Provider: 05/14/17 14:59 - History of Present Illness Narrative History of Present Illness (Text): 05/14/17 15:29 Patient is a 66 y/o with pmh of htn, COPD, hld, h/o vertigo, h/o recurrent chest pain s/p cardiac cath with normal coronaries, LVEF of 55%, h/o gastritis presenting with nausea, vomiting, and dizziness. Patient states on Thursday while sewing herself a dress she burned her left wrist with hot iron, patient washed the wound and dressed it herself. Patient went to see her pressure controller today, and the obgyn also cleaned the wound and applied silvadene. 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 When she got home she started to experience nausea, vomited multiple times, with dizziness, and headache. Patient admits to photophobia, denies tinnitus, denies fever, chills, admits to abdominal pain, but states she has chronic abdominal pain. Patient denies dysuria. States the left wrist burn was raised, however it draining watery fluid few days prior. Denies cp or sob. (Mary Solomon) Past Medical History - Provider Review Nursing Documentation Reviewed: Yes - Travel History Have you recently traveled outside [place] w/in the past 3 mons?: No - Tetanus Immunization Tetanus Immunization: Unknown - Cardiac Hx Cardiac Disorders: Yes Hx Angina: Yes Hx Hypertension: Yes - Pulmonary Hx Respiratory Disorders: Yes Hx Asthma: Yes Hx Bronchitis: Yes Hx Chronic Obstructive Pulmonary Disease (COPD): Yes - Neurological Hx Neurological Disorder: Yes Other/Comment: Pinched nerve at posterior neck, mid back, lumbar spine - HEENT Hx HEENT Disorder: No - Renal Hx Renal Disorder: No - Endocrine/Metabolic Hx Endocrine Disorders: No - Hematological/Oncological Hx Blood Disorders: No - Integumentary Hx Dermatological Disorder: No - Musculoskeletal/Rheumatological Hx Musculoskeletal Disorders: Yes Hx Arthritis: Yes Hx Falls: Yes Hx Fractures: Yes (right knee fx with sx) - Gastrointestinal Hx Gastrointestinal Disorders: Yes (hemorrhoids removed) Hx Gastrointestinal Ulcer: Yes Other/Comment: Rectal bleeding - Genitourinary/Gynecological Hx Genitourinary Disorders: No - Psychiatric Hx Psychophysiologic Disorder: Yes Hx Anxiety: Yes Hx Depression: Yes Hx Substance Use: No - Surgical History Hx Cardiac Catheterization: Yes Hx Musculoskeletal Surgery: Yes (right knee fx 2 sx's) Hx Orthopedic Surgery: Yes Other/Comment: lumps behind neck/capri great toes - Anesthesia Hx Anesthesia: Yes Hx Anesthesia Reactions: No - Suicidal Assessment Feels Threatened In Home Enviroment: No Family/Social History - Physician Review Nursing Documentation Reviewed: Yes Family/Social History: No Known Family HX Smoking Status: Never Smoked Hx Alcohol Use: No Hx Substance Use: No Hx Substance Use Treatment: No Allergies/Home Meds Allergies/Adverse Reactions: Allergies acetaminophen [From Percocet] Allergy (Verified 05/14/17 15:11) ITCHING morphine Allergy (Verified 05/14/17 15:11) ITCHING oxycodone HCl [From Percocet] Allergy (Verified 05/14/17 15:11) ITCHING tramadol HCl [From Ultram] Allergy (Verified 05/14/17 15:11) ITCHING Home Medications: Home Meds Medication Instructions Recorded Confirmed Meloxicam [Mobic] 7.5 mg PO DAILY 02/09/17 05/14/17 Bisacodyl [Dulcolax] 1 tab PO PRN PRN 03/23/17 05/14/17 Escitalopram [Lexapro] 10 mg PO DAILY 03/23/17 05/14/17 Famotidine [Pepcid] 40 mg PO HS 03/23/17 05/14/17 Fluticasone Furoate [Arnuity 1 inh INH DAILY 03/23/17 05/14/17 Ellipta] Fluticasone Nasal [Flonase] 1 spray IN DAILY 03/23/17 05/14/17 Levocetirizine Dihydrochloride 5 mg PO HS 03/23/17 05/14/17 [Xyzal] Ondansetron HCl [Zofran] 8 mg PO Q6 PRN 03/23/17 05/14/17 Sucralfate [Carafate] 1 tab PO ACHS 03/23/17 05/14/17 Umeclidinium Brm/Vilanterol Tr 1 inh INH DAILY 03/23/17 05/14/17 [Anoro Ellipta 62.5-25 Mcg INH] Review of Systems - Review of Systems Constitutional: Normal Eyes: Photophobia. absent: Vision Changes, Eye Pain ENT: Normal Respiratory: Normal Cardiovascular: Normal Gastrointestinal: Abdominal Pain (epigastric ), Nausea, Vomiting. absent: Stool Changes, Constipation, Diarrhea, Appetite Changes Genitourinary Female: Normal Musculoskeletal: Normal Skin: Normal Neurological: Headache, Dizziness. absent: Focal Weakness, Gait Changes, Speech Changes Endocrine: Normal Hemo/Lymphatic: Normal Psychiatric: Normal Physical Exam Vital Signs Reviewed: Yes Temperature: Afebrile Blood Pressure: Normal Pulse: Regular Respiratory Rate: Normal Appearance: Positive for: Well-Appearing, Non-Toxic, Comfortable Pain Distress: None Mental Status: Positive for: Alert and Oriented X 3 - Systems Exam Head: Present: Atraumatic, Normocephalic Pupils: Present: PERRL Extroacular Muscles: Present: EOMI Conjunctiva: Present: Normal. No: Icteric Mouth: Present: Moist Mucous Membranes Neck: Present: Normal Range of Motion. No: Meningeal Signs, MIDLINE TENDERNESS , Lymphadenopathy Respiratory/Chest: Present: Clear to Auscultation, Good Air Exchange. No: Respiratory Distress, Accessory Muscle Use, Wheezes, Decreased Breath Sounds, Rales, Retracting, Rhonchi, Tachypneic Cardiovascular: Present: Regular Rate and Rhythm, Normal S1, S2. No: Murmurs, Tachycardic, Bradycardic, Rub, Gallop, Muffled Abdomen: Present: Normal Bowel Sounds. No: Tenderness, Distention, Rebound, Guarding Upper Extremity: Present: Other (left wrist with a circular like superficial wound with mild irritation and clean scap above the burn. + 2 radial nerve pulse , Normal ROM, mild tenderness to touch ). No: Cyanosis, Edema Lower Extremity: Present: Normal Inspection. No: Edema Neurological: Present: GCS=15, CN II-XII Intact, Speech Normal, Motor Func Grossly Intact Skin: Present: Warm, Dry, Rashes, Normal Color Psychiatric: Present: Alert, Oriented x 3, Normal Insight, Normal Concentration Medical Decision Making Re-evaluation Time: 17:05 Reassessment Condition: Improved - Lab Interpretations I have reviewed the lab results: Yes Interpretation: All labs normal - RAD Interpretation Assurance Officer: Radiologist - EKG Interpretation Interpreted by ED Physician: Yes Type: 12 lead EKG Comparison: Similar to previous EKG (NSR at HR of 81, Left axis deviation, LBBB , MILD QTC PROLONGATION.) ED Course and Treatment: 05/14/17 15:47 Patient is a 66 y/o with pmh of htn, COPD, hld, h/o vertigo, h/o recurrent chest pain s/p cardiac cath with normal coronaries, LVEF of 55%, h/o gastritis presenting with nausea, vomiting, dizziness and headache. Differentials: vertigo, food poisoning, r/o CVA, Brain mass, less likely sepsis. Plan: CBC, CMP, LIPASE, UA 1 L NS BOLUS, PEPCID, MECLIZINE CT head w/o contrast. Discussed with Dr Jennings. 05/14/17 17:21 All labs were normal, ekg unchanged from prior EKG from March, CT head was also negative for acute finding. Patient improved with meclizine, and pepcid. No signs of sepsis. Patient to be discharged home to follow up with Dr Mitchell. Patient advised to keep the burn area clean, return to the ed if she developed fever, chills, or/and purulent discharge. (Mary Solomon) pt presents w vertigo sx which she has had before. cerebellar fxn nl. no neuro deficits. sx improved w rx. headache is same as prior which she tells me she has been getting for years, and is resolved by the time I saw the pt. she is ambulatory w steady gait and comfortable w dc. (Reese Jennings) - Lab Interpretations Lab Results: 05/14/17 15:46 05/14/17 15:46 Lab Results 05/14/17 15:46: Sodium 139, Potassium 3.9, Chloride 103, Carbon Dioxide 27, Anion Gap 13, BUN 11, Creatinine 0.7, Est GFR ( Amer) > 60, Est GFR (Non- Af Amer) > 60, Random Glucose 99, Calcium 9.3, Total Bilirubin 0.8, AST 33, ALT 20, Alkaline Phosphatase 89, Total Protein 7.5, Albumin 4.3, Globulin 3.2, Albumin/Globulin Ratio 1.3, Lipase 81 05/14/17 15:46: WBC 5.9, RBC 4.18, Hgb 13.1, Hct 38.3, MCV 91.6, MCH 31.3, MCHC 34.2, RDW 12.3, Plt Count 231, MPV 10.6, Gran % 63.5, Lymph % (Auto) 28.9, Stoddard % (Auto) 6.6 H, Eos % (Auto) 0.8 L, Baso % (Auto) 0.2, Gran # 3.74, Lymph # 1.7 , Stoddard # 0.4, Eos # 0.1, Baso # 0.01 - RAD Interpretation Narrative RAD Interpretations (Text): 05/14/17 17:08 CT head w/o contrast : FINDINGS: HEMORRHAGE: No intracranial hemorrhage. BRAIN: No mass effect or edema. Scattered periventricular and subcortical white matter hypodensities, which are nonspecific, but often seen with chronic microvascular ischemic disease. Please note that MRI with diffusion imaging is more sensitive in the detection of acute ischemic event. VENTRICLES: No hydrocephalus. CALVARIUM: Unremarkable. PARANASAL SINUSES: Unremarkable as visualized. No significant inflammatory changes. MASTOID AIR CELLS: Unremarkable as visualized. No inflammatory changes. OTHER FINDINGS: Bilateral nasal bone deformities appear chronic. IMPRESSION: Scattered nonspecific white matter changes. (Mary Solomon) Radiology Orders: 05/14/17 15:36 HEAD W/O CONTRAST [CT] Stat - Medication Orders Current Medication Orders: Discontinued Medications Famotidine (Pepcid) 20 mg IVP STAT STA Stop: 05/14/17 15:39 Last Admin: 05/14/17 15:57 Dose: 20 mg Sodium Chloride (Sodium Chloride 0.9%) 1,000 mls @ 999 mls/hr IV .Q1H1M STA Stop: 05/14/17 16:25 Last Admin: 05/14/17 16:01 Dose: 999 mls/hr Meclizine HCl (Antivert) 12.5 mg PO STAT STA Stop: 05/14/17 15:37 Last Admin: 05/14/17 16:01 Dose: 12.5 mg Disposition/Present on Arrival - Present on Arrival Any Indicators Present on Arrival: No History of DVT/PE: No History of Uncontrolled Diabetes: No Urinary Catheter: No History of Decub. Ulcer: No History Surgical Site Infection Following: None - Disposition Have Diagnosis and Disposition been Completed?: Yes Disposition Time: 17:12 Patient Plan: Discharge - Disposition Diagnosis: Vertigo, Headache Disposition: HOME/ ROUTINE Condition: IMPROVED Discharge Instructions (ExitCare): Vertigo (ED) Additional Instructions: Please follow up with PMD Please come back if symptoms worsens, or if you have new symptoms. Referrals: Rod Romano MD [Staff Provider] - Follow up with primary
[2017-05-14 15:54] LABS: ADD MANUAL DIFF? NO
[2017-05-14 15:57] LABS: BASO # 0.01 K/mm3 (0.0-2.0); BASO % 0.2 % (0.0-3.0); EOS # 0.1 (0.0-0.7); EOS % 0.8 % (1.5-5.0); GRAN # 3.74 (1.4-6.5); GRAN % 63.5 % (50.0-68.0); HEMATOCRIT 38.3 % (36.0-48.0); LYMPH # 1.7 (1.2-3.4); LYMPH % 28.9 % (22.0-35.0); MEAN CELL VOLUME 91.6 fL (80.0-105.0); MEAN CORPUSCULAR HEMOGLOBIN 31.3 pg (25.0-35.0); MEAN CORPUSCULAR HGB CONC 34.2 g/dl (31.0-37.0); MEAN PLATELET VOLUME 10.6 fl (7.0-11.0); MONO # 0.4 (0.1-0.6); MONO % 6.6 % (1.0-6.0); PLATELET COUNT 231 10^3/uL (120.0-450.0); RED CELL DISTRIBUTION WIDTH 12.3 % (11.5-14.5); WHITE BLOOD COUNT 5.9 10^3/ul (4.5-11.0)
[2017-05-14 16:07] LABS: ALB/GLOB RATIO 1.3 (1.1-1.8); ALKALINE PHOSPHATASE 89 U/L (38-133); ALT/SGPT 20 U/L (7-56); AST/SGOT 33 U/L (15-39); BILIRUBIN,TOTAL 0.8 mg/dL (0.2-1.3); BLOOD UREA NITROGEN 11 mg/dL (7-21); CALCIUM 9.3 mg/dL (8.4-10.5); CARBON DIOXIDE 27 mmol/L (21-33); CHLORIDE 103 mmol/L (98-107); GFR AFRICAN-AMERICAN > 60; GLUCOSE,RANDOM 99 mg/dL (70-110); LIPASE 81 U/L (23-300); POTASSIUM 3.9 mmol/L (3.6-5.0); SODIUM 139 mmol/L (132-148); TOTAL PROTEIN 7.5 g/dL (5.8-8.3)
--- NOTE | 2017-05-14 16:07 | CT ---
PROCEDURE: CT HEAD WITHOUT CONTRAST. HISTORY: DIZZINESS and headache. COMPARISON: None available. TECHNIQUE: Axial computed tomography images were obtained through the head/brain without intravenous contrast. Radiation dose: Total exam DLP = 835.91 mGy-cm. This CT exam was performed using one or more of the following dose reduction techniques: Automated exposure control, adjustment of the mA and/or kV according to patient size, and/or use of iterative reconstruction technique. FINDINGS: HEMORRHAGE: No intracranial hemorrhage. BRAIN: No mass effect or edema. Scattered periventricular and subcortical white matter hypodensities, which are nonspecific, but often seen with chronic microvascular ischemic disease. Please note that MRI with diffusion imaging is more sensitive in the detection of acute ischemic event. VENTRICLES: No hydrocephalus. CALVARIUM: Unremarkable. PARANASAL SINUSES: Unremarkable as visualized. No significant inflammatory changes. MASTOID AIR CELLS: Unremarkable as visualized. No inflammatory changes. OTHER FINDINGS: Bilateral nasal bone deformities appear chronic. IMPRESSION: Scattered nonspecific white matter changes.
[2017-05-14 17:32] VITALS: BP 153/89; PULSE 64; RESP 14; O2SAT 98
--- NOTE | 2017-05-15 11:33 | CARD ---
APPROVED REPORT EKG Measurement Heart [id number] <Conclusion> Normal sinus rhythm Left bundle branch block Abnormal ECG
== END 2017-05-14 17:34 | disposition home or self-care (01) ==
LOC: ED 14:57
DX: R42 Dizziness and giddiness (principal); R51 Headache; I20.9 Angina pectoris, unspecified; I10 Essential (primary) hypertension
CPT/HCPCS: 70450; 80053; 83690; 85025; 93005; 96374; 99285; J7040

== ENCOUNTER 2017-07-31 09:57 | Day surgery (SDC) | payer MEDICARE, MEDICAID ==
[2017-06-08 14:13] VITALS: BMI 25.4
[2017-07-31] MEDS ORDERED: Propofol 10 mg/ml Inj (20 ML) ONE (12:20)
[2017-07-31] MEDS ORDERED: Sodium Chloride 0.9% 1,000 ML IV SCH (14:00)
[2017-07-31 15:25] VITALS: RESP 16; TEMP 97.9
[2017-07-31 15:26] VITALS: BP 150/90; PULSE 64; O2SAT 98
== END 2017-07-31 15:11 | disposition home or self-care (01) ==
LOC: ENDO 09:57
PROVIDERS: ATTEND Internal Medicine Gastroenterology
DX: K29.50 Unspecified chronic gastritis without bleeding (principal); K59.00 Constipation, unspecified; K57.30 Diverticulosis of large intestine without perforation or abscess without bleeding; K63.5 Polyp of colon; K62.1 Rectal polyp; K64.8 Other hemorrhoids
CPT/HCPCS: 43239; 45380; 88305; 88342; J2001; J2704; J7040 ×2

== ENCOUNTER 2018-02-16 12:28 | Day surgery (SDC) | payer MEDICARE ==
[2018-02-05 13:39] VITALS: BMI 26.9
[2018-02-16 13:43] LABS: BASO # 0.01 K/mm3 (0.0-2.0); BASO % 0.2 % (0.0-3.0); EOS % 0.6 % (1.5-5.0); GRAN # 2.88 (1.4-6.5); GRAN % 55.5 % (50.0-68.0); HEMOGLOBIN 13.6 g/dL (12.0-16.0); LYMPH # 1.9 (1.2-3.4); MEAN CELL VOLUME 91.4 fl (80.0-105.0); MEAN CORPUSCULAR HEMOGLOBIN 31.6 pg (25.0-35.0); MEAN CORPUSCULAR HGB CONC 34.6 g/dl (31.0-37.0); MEAN PLATELET VOLUME 10.5 fl (7.0-11.0); MONO # 0.4 (0.1-0.6); MONO % 6.7 % (1.0-6.0); RBC 4.3 10^6/uL (3.5-6.1); RED CELL DISTRIBUTION WIDTH 12.9 % (11.5-14.5); WHITE BLOOD COUNT 5.2 10^3/ul (4.5-11.0)
[2018-02-16] MEDS ORDERED: Propofol 10 mg/ml Inj (20 ML) ONE (13:45)
[2018-02-16 13:52] LABS: ALB/GLOB RATIO 1.4 (1.1-1.8); ALBUMIN 4.5 g/dL (3.0-4.8); ALT/SGPT 18 U/L (7-56); AMYLASE 117 U/L (35-125); AST/SGOT 33 U/L (14-36); BLOOD UREA NITROGEN 15 mg/dL (7-21); GAMMA GLUTAMYL TRANSPEPTIDASE 14 U/L (8-78); GFR AFRICAN-AMERICAN > 60; GFR NON-AFRICAN AMERICAN > 60; LIPASE 86 U/L (23-300)
[2018-02-16 13:54] LABS: PARTIAL THROMBOPLASTIN TIME 31.1 Seconds (25.1-36.5); PROTHROMBIN TIME 11.5 SECONDS (9.4-12.5)
[2018-02-16] MEDS ORDERED: Midazolam 2 MG/2 ML VIAL ONE ×2 (15:13→15:36)
[2018-02-16 16:03] VITALS: O2SAT 98
[2018-02-16 16:54] VITALS: BP 149/83; PULSE 66; RESP 16; TEMP 97.4
== END 2018-02-16 17:54 | disposition home or self-care (01) ==
LOC: ENDO 12:28
PROVIDERS: ATTEND Internal Medicine Gastroenterology
DX: K29.50 Unspecified chronic gastritis without bleeding (principal); R93.3 Abnormal findings on diagnostic imaging of other parts of digestive tract
CPT/HCPCS: 36415; 43237; 43239; 80053; 82150; 82977; 83690; 85025; 85610; 85730; 88305; 88312; 88342; J2001; J2250; J2704; J7040

== ENCOUNTER 2019-04-08 08:40 | Outpatient (CLI) | payer MEDICARE, MEDICAID | END 2019-04-08 08:41 | disposition home or self-care (01) | LOC: LAB 08:40 ==